=== PATIENT | male | born 1950 | race Caucasian/White ===

== ENCOUNTER 2018-11-19 05:31 | Emergency (ER) | payer MEDICARE ==
[~2018-11-19] VITALS: Ht 167.6 cm; Wt 63.5 kg
[~2018-11-19 05:31] MED LIST: BLOOD PRESSURE; LISINOPRIL20 MG PO
[2018-11-19] MEDS ORDERED: CHOLESTROL MEDICINE (05:37)
[2018-11-19 06:13] LABS: ABSOLUTE BASOPHILS 0.1 thou/uL (0.0-0.2); ABSOLUTE EOSINOPHILS 0.5 thou/uL (0.0-0.7); ABSOLUTE LYMPHOCYTES 1.2 thou/uL (0.8-5.3); ABSOLUTE MONOCYTES 0.6 thou/uL (0.0-1.2); ABSOLUTE NEUTROPHILS 6.1 thou/uL (1.6-8.1); EOSINOPHILS 5.8 %; HEMATOCRIT 46.4 % (42.0-52.0); HEMOGLOBIN 16.1 gm/dL (14.0-18.0); LYMPHOCYTES 13.9 %; MCH 34.4 pg (26.0-34.0); MCHC 34.7 g/dL (28.0-37.0); MCV 99.3 fL (80.0-100.0); MONOCYTES 7.2 %; MPV 8.5 fl. (7.2-11.1); NUCLEATED RBCS 0 /100WBC; PLATELET COUNT* 247 thou/uL (150-400); POLYS 72.1 %; RBC 4.67 mil/uL (4.50-6.00); RDW-CV 14.3 % (10.5-14.5); WBC 8.4 thou/uL (4.0-11.0)
[2018-11-19 06:18] LABS: ANION GAP 8 mmol/L (7-16); BUN 14 mg/dL (7-18); CALCIUM 9.3 mg/dL (8.5-10.1); CHLORIDE 103 mmol/L (98-107); CO2 28 mmol/L (21-32); GLUCOSE 93 mg/dL (70-99); POTASSIUM 4.3 mmol/L (3.5-5.1); SODIUM 139 mmol/L (136-145)
[2018-11-19 06:28] LABS: ALBUMIN 3.7 g/dL (3.4-5.0); ALKALINE PHOSPHATASE 112 U/L (46-116); SGOT 18 U/L (15-37); SGPT 27 U/L (30-65); TOTAL BILIRUBIN 0.5 mg/dL (<0.1-1.0); TOTAL PROTEIN 7.8 g/dL (6.4-8.2); TROPONIN-I LEVEL <0.06 ng/mL (<0.06)
[2018-11-19 08:20] VITALS: BP 150/90
[2018-11-19 08:23] LABS: APTT 28.8 Seconds (25.0-31.3); PROTIME 10.1 Seconds (9.20-11.50)
--- NOTE | 2018-11-21 12:27 | EKG ---
[place] [address] ELECTROCARDIOGRAM REPORT Name: RUY MTZ [id number] Admission: 11/19/18 Attend Phys: Discharge: 11/19/18 Date of : 54 Report #: [id number] THIS REPORT FOR: //name// [facility] ED Test Date: 2018-11-19 Test Time: 06:02:08 Pat Name: RUY MTZ Department: Room: Gender: Public Health Staff Nurse: [place] : 1950 Requested By: Socorro Hodgson Order Number: [id number] MD: Soren Lloyd Measurements Intervals [place] Rate: 96 P: 64 AL: 165 QRS: -41 QRSD: 85 T: 60 QT: 347 QTc: 439 Interpretive Statements Sinus rhythm Left axis deviation RSR' in V1 or V2, probably normal variant No previous ECG available for comparison Electronically Signed On 11-21-2018 12:27:01 CDT by Soren Lloyd [email or web address] <ELECTRONICALLY SIGNED> By: Soren Lloyd MD, [facility] 11/21/18 1227 0602 06 Soren Lloyd MD, FACC /EPI
== END 2018-11-19 08:21 | disposition home or self-care (01) ==
LOC: M.ERS 05:31
PROVIDERS: Family Medicine; Personal Emergency Response Attendant
DX: R04.0 Epistaxis (principal); I10 Essential (primary) hypertension; R42 Dizziness and giddiness

== ENCOUNTER 2018-11-20 03:14 | Emergency (ER) | payer MEDICARE ==
[~2018-11-20] VITALS: Ht 167.6 cm; Wt 65.3 kg
[~2018-11-20 03:14] MED LIST changes: +CHOLESTROL MEDICINE
[2018-11-20 04:35] VITALS: BP 140/79
[2018-11-21] MEDS ORDERED: NORCO 5-325 TA1 EAC1 PO (16:40)
== END 2018-11-20 04:37 | disposition home or self-care (01) ==
LOC: M.ERS 03:14
DX: R04.0 Epistaxis (principal); I10 Essential (primary) hypertension; F17.210 Nicotine dependence, cigarettes, uncomplicated; Z90.49 Acquired absence of other specified parts of digestive tract

== ENCOUNTER 2018-11-20 21:50 | Emergency (ER) | payer MEDICARE ==
[~2018-11-20] VITALS: Ht 167.6 cm; Wt 65.8 kg
[2018-11-20 23:28] VITALS: BP 134/91
[2018-11-21] MEDS ORDERED: NORCO 5-325 TA1 EAC1 PO (16:40)
== END 2018-11-20 23:28 | disposition home or self-care (01) ==
LOC: M.ERS 21:50
DX: R04.0 Epistaxis (principal); I10 Essential (primary) hypertension; F17.210 Nicotine dependence, cigarettes, uncomplicated; Z90.49 Acquired absence of other specified parts of digestive tract

== ENCOUNTER 2018-11-21 08:22 | Emergency (ER) | payer MEDICARE ==
[~2018-11-21] VITALS: Ht 167.6 cm; Wt 65.3 kg
[2018-11-21 08:31] VITALS: BP 150/95
[2018-11-21] MEDS ORDERED: NORCO 5-325 TA1 EAC1 PO (16:40)
== END 2018-11-21 09:32 | disposition home or self-care (01) ==
LOC: M.ERS 08:22
DX: R04.0 Epistaxis (principal); I10 Essential (primary) hypertension; F17.210 Nicotine dependence, cigarettes, uncomplicated; Z90.89 Acquired absence of other organs

== ENCOUNTER 2018-11-21 16:05 | Emergency (ER) | payer MEDICARE | END 2018-11-21 17:01 | disposition home or self-care (01) | LOC: M.ERS 16:05 | DX: R04.0 Epistaxis (principal); I10 Essential (primary) hypertension; F10.10 Alcohol abuse, uncomplicated; F17.210 Nicotine dependence, cigarettes, uncomplicated; Z90.49 Acquired absence of other specified parts of digestive tract; Z79.899 Other long term (current) drug therapy ==

== ENCOUNTER → 2019-03-20 | Outpatient (CLI) | payer MEDICARE ==
[~2019-03-20] MED LIST changes: +NORCO 5-325 TA1 EAC1 PO
--- NOTE | 2019-03-21 09:48 | CARDNUC ---
[place] [address] CARDIAC NUCLEAR IMAGING REPORT Name: RUY MTZ Room: [facility]#: [id number] Admission: 03/20/19 Attend Phys: Wili Sears, Discharge: Date of : 54 Date of Service: 03/21/19 0948 Report #: [id number] THIS REPORT FOR: //name// APPROVED REPORT Study performed: 03/20/2019 14:09:52 Exam: Nuclear Stress Test Indication: Dyspnea, Chest Heaviness, increased fatigue/weakness, Lightheadedness. Patient Location: Out-Patient Stress Tech: Tracey Lozano Stress Nurse: Joy Cesar RN Ht: 5 ft 6 in Wt: 134 lbs BSA: 1.69 m2 BMI: 21.62 Medical History Medical History: Fatigue, HTN, Hyperlipidemia, Smoking, SOB, Weakness, Lightheadedness, Dizziness, Chest heaviness. Medications: Patient unsure, does not remember meds, possible Lisinopril and a cholesterol medication, poor historian. Allergies: Lisinopril - patient unsure, poor historian Cardiac Risk Factors: Age, Current Smoker, HTN, Hyperlipidemia, SOB. Previous Cardiac Procedures: None Pretest Chest Pain Characteristics: No chest pain Exercise History: Sedentary Physical Disabilities: Exercise intolerance, increased fatigue/weakness. Meds Held (24 hrs): None Stress Test Details Stress Test: Pharmacologic stress testing performed using 0.4 mg of regadenoson per 5 mL given IV over 10 seconds. Reason for pharmacologic stress test: Exercise intolerance, increased fatigue/weakness.. HR Resting HR: 90 bpm Max Heart Rate (APMHR): 153 bpm Max HR Achieved: 111 bpm Target HR (85% APMHR): 130 bpm % of APMHR: 72 Recovery HR: 98 bpm BP Resting BP: 150/81 [place] [address] CARDIAC NUCLEAR IMAGING REPORT Name: RUY MTZ Room: [facility]#: [id number] Admission: 03/20/19 Attend Phys: Wili Sears, Discharge: Date of : 54 Date of Service: 03/21/19 0948 Report #: [id number] Max BP: 110/70 mmHg ECG Resting ECG: Sinus Rhythm Stress ECG: Sinus Tachycardia ST Change: None Arrhythmia: None Recovery ECG: Sinus Rhythm Recovery ST Change: None Recovery Arrhythmia: None Clinical Reason for Termination: Completed protocol Stress Symptoms: Dyspnea, Nausea Exercise duration: 00 min 00 sec Exercise capacity: 1.00 METs Patient had no significant cardiac symptoms with Lexiscan infusion. Nurse Comments A 69 year old male presented for Nuclear Med - Lexiscan stress test. Test well tolerated. Recovery unremarkable with PO caffeine, effective. Patient was escorted by staff to Nuclear Medicine for images. Patient was stable and stated he felt good at that time. Stress ECG Conclusion The baseline 12-lead EKG shows sinus rhythm without significant ST or T wave abnormality. EKGs obtained during and post Lexiscan infusion show sinus rhythm and sinus tachycardia with no significant ST or T wave changes when compared to baseline. There were no stress-induced arrhythmias. NM EXAM: Myocardial Perfusion REST/STRESS Imaging Protocol: Rest Tc-99m/Stress Tc-99m 1 day Resting Data Rest SPECT myocardial perfusion imaging was performed in supine position 30 minutes following the intravenous injection of 11.2 mCi of Tc-99m Sestamibi. Time of rest injection: 12:45 The images were gated to evaluate regional wall motion and calculate left ventricular ejection fraction. Administration Route: IV Administration Site: [place] [address] CARDIAC NUCLEAR IMAGING REPORT Name: RUY MTZ Room: [facility] ChanduRadha#: [id number] Admission: 03/20/19 Attend Phys: Wili Sears, Discharge: Date of : 54 Date of Service: 03/21/19 0948 Report #: [id number] Pharmacologic Stress Pharmacologic stress test was performed by injecting Regadenoson 0.4 mg IV push followed by the intravenous injection of 34.0 mCi of Tc-99m Sestamibi. Time of stress injection: 14;25 Administration Route: IV Administration Site: Right Arm Heart Rate at time of stress injection: 111 bpm. Gated Stress SPECT was performed 40 minutes after stress injection. The images were gated to evaluate regional wall motion and calculate left ventricular ejection fraction. Prone imaging was performed. Study Quality Study: Good Artifact: Mild Diaphragmatic artifact Study Data At rest, the left ventricular ejection fraction was 60%.. Post stress, the left ventricular ejection was 62%.. TID = 0.95. Perfusion Perfusion images obtained in the supine position show mild photopenia in the mid to distal inferior and inferoapical wall that resolves completely with post stress prone imaging suggesting diaphragmatic attenuation artifact. No significant fixed or reversible defects were identified. Wall Motion Normal left ventricular wall motion. Nuclear Conclusion ECG Findings: negative for ischemia Clinical Findings: negative for ischemia Nuclear Findings: negative for ischemia Exercise Capacity: not assessed Left Ventricular Function: normal Risk Study: low Myocardial perfusion images show no defect to suggest infarct or ischemia. Left ventricular systolic function appears normal on gated studies. This is a low risk study. <Conclusion> The baseline 12-lead EKG shows sinus rhythm without significant [place] [address] CARDIAC NUCLEAR IMAGING REPORT Name: RUY MTZ Room: [facility]#: [id number] Admission: 03/20/19 Attend Phys: Wili Sears, Discharge: Date of : 54 Date of Service: 03/21/19 0948 Report #: [id number] T wave abnormality. EKGs obtained during and post Lexiscan infusion show sinus rhythm and sinus tachycardia with no significant ST or T wave changes when compared to baseline. There were no stress-induced arrhythmias. <ELECTRONICALLY SIGNED> By: Clark Oliveira MD, FACC 03/21/19947 7 7 Clark Oliveira MD, FACC /INF
== END ==
LOC: M.NUC 03-17 10:37 → M.CRD 03-28 09:00 → M.NUC 03-28 09:00
DX: R00.0 Tachycardia, unspecified (principal); R06.02 Shortness of breath; I10 Essential (primary) hypertension; E78.5 Hyperlipidemia, unspecified; F17.210 Nicotine dependence, cigarettes, uncomplicated

== ENCOUNTER → 2019-10-02 | Outpatient (CLI) | payer OTHER | LOC: M.LAB 09:55 → M.CT 11:00 | PROVIDERS: Nurse Practitioner Family | DX: J43.9 Emphysema, unspecified (principal); I25.10 Atherosclerotic heart disease of native coronary artery without angina pectoris; J98.4 Other disorders of lung ==

== ENCOUNTER → 2021-02-20 | Outpatient (CLI) | payer OTHER, MEDICAID | LOC: M.RAD 02-18 10:00 | PROVIDERS: ATTEND Nurse Practitioner Family | DX: R13.10 Dysphagia, unspecified (principal) ==